=== PATIENT | male | born 1990 | race African-American/Black ===

== ENCOUNTER 2023-04-22 07:31 | Emergency (ER) | payer OTHER, SELFPAY ==
[2023-04-22 07:33] VITALS: BP 138/86
[2023-04-22 07:53] VITALS: BMI 25.6
--- NOTE | 2023-04-22 08:19 | ED.GENMED ---
History of Present Illness
General
Chief Complaint: Headache
Source: patient
Exam Limitations: none
Time Seen by Provider: 04/22/23 08:05
Nursing documentation reviewed up to this point in time: agreed with
Travel History
Have you had any contact with someone who has COVID-19?: No
Do you have any symptoms of coronavirus? Fever > 100 degrees, chills, cough, shortness of breath, sore throat, loss of taste or smell, muscle aches, or headache?: No
History of Present Illness
History of Present Illness:
32-year-old male presents emergency room complaint of a headache for the past 3 days. It is frontal left-sided and posterior. He has not had a headache like this before. He denies any trauma. He has some nausea, no vomiting. He also notes some
mild photophobia.
Past History
Past History
ED Past Medical History: None
ED Past Surgical History: None
Social History
Tobacco: Non-smoker
Alcohol: None
Drug: None
Living: with family
Employment: Employed
Review of Systems
Review of Systems
Allergies reviewed?: Yes
All Other Systems: Not applicable
Constitutional: Reports no symptoms
EENT: Reports no symptoms
Respiratory: Reports no symptoms
Cardiac: Reports no symptoms; Denies chest pain
ABD/GI: Reports nausea
: Reports no symptoms
Musculoskeletal: Reports no symptoms
Skin: Reports no symptoms
Neurological: Reports dizzy and headache
Endocrine: Reports no symptoms
Hematologic/Lymphatic: Reports no symptoms
Psychiatric: Reports no symptoms
Phy Exam
Physical Exam
Physical Exam:
Physical Exam
General: no apparent distress, not acutely ill
Neck: supple. no meningeal signs. normal posterior pharynx
Heart: s1/s2 regular rate and rhythm, no murmur. equal radial
pulses.
HEENT: Pupils equal round reactive to light, EOMI
Lungs: no acute respiratory distress. clear bilaterally
Abdomen: normal bowel sounds. not tender. no CVAT
Neuro: alert and oriented. no focal neurological deficits cranial nerves II through XII intact
Skin: no rash
Psychiatric: well kept. interactive and cooperative
Extremities: no edema. no calf tenderness. negative homans. good distal pulses
Course
Orders/Labs/Results
Orders:
Orders
04/22/23 08:18
Cardiac Monitoring- Treatment ONCE
IV Insert/Care/Rem.- Treatment PRN
0.9% Sodium Chloride 1000 ml [Nss] 1,000 ml IV BOLUS
Pulse Ox/cont/shift [RESP] Stat
Quantity: 1
04/22/23 08:19
Electrocardiogram (*1) Stat
Reason for Study: Other
Other Reason for Exam: Headache
CT Head W/o Iv Contrast Urgent
Comment:
Reason For Exam: headache, dizzy, 3 days
EKG- Treatment ONCE
04/22/23 08:39
COVID-19 Antigen Urgent
Source: Nasal Swab
Influenza A+B Rapid Molecular Urgent
BRITT Source: Nasal Swab
Specimen Description:
04/22/23 08:40
Complete Blood Count/With Diff Urgent
Comprehensive Metabolic Panel Urgent
04/22/23 09:22
Ketorolac [Toradol] 15 mg IV NOW STA
Ondansetron Injectable [Zofran] 4 mg IV NOW STA
04/22/23 10:50
Diphenhydramine [Benadryl] 25 mg IV NOW STA
Prochlorperazine [Compazine] 10 mg IV NOW STA
Abnormal Lab Results
04/22/23
08:40
MPV 11.5 H fL
(7.4-10.4)
Monocytes % 9.5 H %
(1.7-9.3)
03/14/24 08:40
04/22/23 08:40
Vital Signs
Initial and Last Documented VS:
Initial Vital Signs
Temp Pulse Resp BP Pulse Ox
98.3 F 64 18 138/86 99
04/22/23 07:33 04/22/23 07:33 04/22/23 07:33 04/22/23 07:33 04/22/23 07:33
Last Documented Vital Signs
Temp Pulse Resp BP Pulse Ox
98.3 F 59 14 132/70 100
04/22/23 07:33 04/22/23 12:45 04/22/23 12:45 04/22/23 12:00 04/22/23 08:30
MDM/Problems Addressed
Differential Diagnosis Includes:
Intracranial hemorrhage, intracranial tumor
MDM/Problems Addressed:
32-year-old male with headache, likely migraine. No signs of intracranial hemorrhage, do not suspect subarachnoid hemorrhage. Patient improved after Reglan, Benadryl and Toradol. Stable for discharge.
*Radiology
Radiology exam reviewed: radiology read reviewed (CT head no acute findings)
*Pulse Oximetry
Patient hypoxic: no
*EKG
Interpreted by ED Provider?: Yes
EKG Intrepretation Date: 04/22/23
EKG Intrepretation Time: 08:26
Interpretation: abnormal
Comparison EKG: no comparison EKG present
Heart Rate: 58
Rate: bradycardiac
Rhythm: sinus
Cranfills Gap: normal axis
Interval: normal interval
QRS Pattern: right bundle branch block
Ischemia: no ischemia
*[employer] Interpretation
Rate: [employer]- N/A
*Critical Care Note
Total Time (30-74mins, 75-104mins- exclusive of procedures): Not Applicable
Data Reviewed
Further Testing Considered But Not Given:
Lumbar puncture not indicated
Patient Management
Social determinants of health affecting care: Living situation and Strong social support
Escalation/DeEscalation of care consider admission/obs:
Admit not indicated
ED Attending Note
-
Portions of this chart may have been created with voice recognition software.� Occasional wrong word or��sound alike� substitutions may have occurred due to the inherent limitations of voice recognition software.
Discharge Plan
Departure
Patient Disposition: Home (Routine Discharge)
Date of Disposition: 04/22/23
Time of Disposition: 13:05
Patient with high blood pressure during this ER visit?: Yes
Condition: Good
Discharge Problem:
Migraine
Instructions: Migraines (DC), BLOOD PRESSURE
Prescriptions:
New
rizatriptan [Maxalt] 10 mg tablet
10 mg PO ONCE MDD 3 tabs PRN (Reason: migraine headache) Qty: 10 0RF
Rx Instructions:
take at headache onset, can repeat after 30 minutes.
No Action
levofloxacin 500 mg tablet
500 mg PO DAILY Qty: 5 0RF
Referrals:
NONE,* [Family Provider] -
Interventions
Interventions:
*Risk Screen - Suicide Last Done: 04/22/23 07:53
*General Assessment Last Done: 04/22/23 07:53
*Neglect/Abuse Screening Last Done: 04/22/23 07:53
ED- Fall Risk Assessment Last Done: 04/22/23 07:53
*ED COVID-19 Vaccine History Last Done: 04/22/23 07:35
ED- Neurological Assessment Last Done: 04/22/23 07:53
[2023-04-22] MEDS: NSS 1000 IV (08:38)
[2023-04-22 08:50] LABS: % Basophils 0.9 % (0-2); % Eosinophils 1.3 % (0-6); % Immature Granulocytes 0.2 % (0-0.5); % Lymphocytes 39.4 % (20.5-51.1); % Monocytes 9.5 % (1.7-9.3); % Neutrophils 48.7 % (42.2-75.2); Absolute Basophils 0.1 10^3/uL (0-0.2); Absolute Eosinophils 0.1 10^3/uL (0-0.7); Absolute Lymphocytes 2.2 10^3/uL (1.2-3.4); Absolute Monocytes 0.5 10^3/uL (0.1-0.6); Absolute Neutrophils 2.7 10^3/uL (1.4-6.5); Hematocrit 45.4 % (39.0-52.0); Hemoglobin 15.8 g/dL (13.0-18.0); Mean Corp Hgb Conc. 34.8 g/dL (33.0-37.0); Mean Corpuscular Hgb 29.9 pg (27.0-31.0); Mean Platelet Volume 11.5 fL (7.4-10.4); Nucleated Red Blood Cells % 0 % (-); Platelet Count 195 10^3/uL (130-400); Red Blood Cell Count 5.28 10^6/uL (4.70-6.10); Red Cell Dist. Width 11.7 % (11.5-14.5); White Blood Cell Count 5.6 10^3/uL (4.8-10.8)
[2023-04-22 09:06] LABS: ALT (SGPT) 20 U/L (0-50); AST (SGOT) 33 U/L (17-59); Albumin 4.8 g/dl (3.5-5.0); Alkaline Phosphatase 72 U/L (38-126); Blood Urea Nitrogen 10 mg/dl (9-20); Calcium 9.6 mg/dl (8.4-10.2); Carbon Dioxide 27 mmol/L (22-30); Chloride 104 mmol/L (98-107); Estimated Creatinine Clearance > 125 ml/min; Glucose 94 mg/dl (70-99); Potassium 4.2 mmol/L (3.5-5.1); Sodium 137 mmol/L (135-145); Total Bilirubin 1.3 mg/dl (0.2-1.3); Total Protein 7.9 g/dl (6.3-8.2); eGFR > 60.00
[2023-04-22 09:08] VITALS: BP 112/80
[2023-04-22 09:09] LABS: COVID-19 Antigen Negative (Negative)
[2023-04-22] MEDS: TORADOL 15 MG IV (09:38)
[2023-04-22] MEDS: ZOFRAN 4 MG IV (09:43)
[2023-04-22 10:00] VITALS: BP 116/72
[2023-04-22 11:00] VITALS: BP 121/75
[2023-04-22] MEDS: BENADRYL 25 MG IV (11:01)
[2023-04-22] MEDS: COMPAZINE 10 MG IV (11:01)
[2023-04-22 12:00] VITALS: BP 132/70
[2023-04-22 13:00] VITALS: BP 123/81
== END 2023-04-22 13:18 | disposition home or self-care (01) ==
LOC: EMR 07:31
PROVIDERS: Emergency Medicine; EMERGENCY PHYSICIAN Emergency Medicine
DX: G43.909 Migraine, unspecified, not intractable, without status migrainosus (principal)
CPT/HCPCS: 99284; 70450; 80053; 85025; 87502; 87811; 93005